=== PATIENT | female | born 2000 | race Two or more races ===

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

== ENCOUNTER 2025-02-16 09:10 | Outpatient (CLI) | payer OTHER | END 2025-02-16 09:15 | disposition home or self-care (01) | LOC: SONOGRAMA 09:10 | PROVIDERS: ATTEND Pathology Anatomic Pathology | DX: C73 Malignant neoplasm of thyroid gland (principal); R59.0 Localized enlarged lymph nodes; E04.1 Nontoxic single thyroid nodule ==